=== PATIENT | male | born 1965 | race Caucasian/White ===

== ENCOUNTER 2017-04-02 17:28 | Emergency (ER) | payer SELFPAY ==
[~2017-04-02] VITALS: Ht 185.4 cm; Wt 83.9 kg
[2017-04-02 17:32] VITALS: BP 109/64
--- NOTE | 2017-04-02 18:10 | NUR ---
TRANSPORTED TO XRAY IN STABLE CONDITION
--- NOTE | 2017-04-02 19:40 | NUR ---
AFTERCARE AND DISCHARGE GIVEN VERBALLY BY PA. PT REFUSED DISCAHRGE VITAL SIGNS OR TO TAKE PAPERWORK.
== END 2017-04-02 19:41 | disposition home or self-care (01) ==
LOC: ER 17:30
DX: S20.212A Contusion of left front wall of thorax, initial encounter (principal); S30.811A Abrasion of abdominal wall, initial encounter; S40.812A Abrasion of left upper arm, initial encounter; S40.811A Abrasion of right upper arm, initial encounter; Y04.2XXA Assault by strike against or bumped into by another person, initial encounter; Y93.89 Activity, other specified; Y92.89 Other specified places as the place of occurrence of the external cause; Y99.9 Unspecified external cause status
CPT/HCPCS: 71100-TC; A4606; A6402; Z7610